=== PATIENT | female | born 1985 | race African-American/Black ===

== ENCOUNTER 2017-08-25 03:07 | Inpatient (IN) | payer OTHER ==
[~2017-08-25] VITALS: Ht 162.6 cm; Wt 81.2 kg
[2017-08-25] VITALS (11 sets, daily range): BP systolic 93–124; BP diastolic 50–67
[~2017-08-25 03:07] MED LIST: MOTRIN800 MG PO; PRENATAL TABLE1 EACH PO; ZOFRAN4 MG PO
[2017-08-25 03:55] LABS: HEMATOCRIT 33.2 % (36.0-46.0); HEMOGLOBIN 11.2 G/DL (11.9-15.5); MCH 28.6 PG (29.0-34.0); MCHC 33.7 G/DL (30.0-36.0); MCV 84.9 FL (83-99); PLATELET COUNT 105 K/uL (156-360); RBC DIS.WIDTH-CV 14.5 % (11.8-14.6); RBC DIS.WIDTH-SD 44.7 % (39-53); RED BLOOD COUNT 3.91 M/uL (3.80-5.20); WHITE BLOOD COUNT 7.6 K/uL (4.1-10.2)
[2017-08-25] MEDS ORDERED: ENDOCET 5-3251 EACH PO (05:56)
[2017-08-25] MEDS ORDERED: IBUPROFEN800 MG PO (05:56)
[2017-08-25 11:01] LABS: HEMATOCRIT 28.9 % (36.0-46.0); HEMOGLOBIN 9.4 G/DL (11.9-15.5); MCH 28.4 PG (29.0-34.0); MCHC 32.5 G/DL (30.0-36.0); MCV 87.3 FL (83-99); PLATELET COUNT 101 K/uL (156-360); RBC DIS.WIDTH-CV 14.6 % (11.8-14.6); RBC DIS.WIDTH-SD 46.3 % (39-53); RED BLOOD COUNT 3.31 M/uL (3.80-5.20); WHITE BLOOD COUNT 13.3 K/uL (4.1-10.2)
[2017-08-25 11:17] LABS: PTT 27.1 SEC (25-37)
[2017-08-25 11:44] LABS: FIBRINOGEN 328 mg/dL (150-450)
[2017-08-25 16:19] LABS: HEMATOCRIT 25.5 % (36.0-46.0); HEMOGLOBIN 8.4 G/DL (11.9-15.5); MCH 28.8 PG (29.0-34.0); MCHC 32.9 G/DL (30.0-36.0); MCV 87.3 FL (83-99); PLATELET COUNT 91 K/uL (156-360); RBC DIS.WIDTH-CV 14.6 % (11.8-14.6); RBC DIS.WIDTH-SD 46.5 % (39-53); RED BLOOD COUNT 2.92 M/uL (3.80-5.20); WHITE BLOOD COUNT 12.5 K/uL (4.1-10.2)
[2017-08-25 20:37] LABS: HEMATOCRIT 25.4 % (36.0-46.0); HEMOGLOBIN 8.6 G/DL (11.9-15.5); MCH 29.7 PG (29.0-34.0); MCHC 33.9 G/DL (30.0-36.0); MCV 87.6 FL (83-99); PLATELET COUNT 93 K/uL (156-360); RBC DIS.WIDTH-CV 14.6 % (11.8-14.6); RBC DIS.WIDTH-SD 46.9 % (39-53)
[2017-08-26 03:00] VITALS: BP 113/61
[2017-08-26 06:42] LABS: BASOPHIL (%) 0.1 % (0-1); EOSINOPHIL (%) 0.1 % (0-5); HEMATOCRIT 23.7 % (36.0-46.0); HEMOGLOBIN 7.8 G/DL (11.9-15.5); IMMATURE GRANULOCYTE (%) 0.4 % (0.0-0.7); LYMPHOCYTE (%) 12.4 % (15-42); LYMPHOCYTE COUNT 1.7 K/uL (1.0-2.8); MCH 28.7 PG (29.0-34.0); MCHC 32.9 G/DL (30.0-36.0); MCV 87.1 FL (83-99); MONOCYTE (%) 3.6 % (3-12); MONOCYTE COUNT 0.5 K/uL (0-0.8); NEUTROPHIL (%) 83.4 % (45-76); NEUTROPHIL COUNT 11.3 K/uL (1.8-6.4); PLATELET COUNT 97 K/uL (156-360); RBC DIS.WIDTH-CV 14.6 % (11.8-14.6); RBC DIS.WIDTH-SD 45.9 % (39-53); RED BLOOD COUNT 2.72 M/uL (3.80-5.20); WHITE BLOOD COUNT 13.5 K/uL (4.1-10.2)
[2017-08-26 07:00] VITALS: BP 98/48
[2017-08-26 11:30] VITALS: BP 116/52
[2017-08-27 07:43] VITALS: BP 124/69
[2017-08-27 14:38] VITALS: BP 116/60
[2017-08-28 08:15] VITALS: BP 104/58
== END 2017-08-28 15:30 | disposition home or self-care (01) | DRG 765 ==
LOC: 2WEST 03:07 → 2SOUTH 10:42 → 2WEST 08-28 15:30
PROVIDERS: Obstetrics & Gynecology; Obstetrics & Gynecology Gynecology
DX: O99.824 Streptococcus B carrier state complicating childbirth (principal); D62 Acute posthemorrhagic anemia; O34.211 Maternal care for low transverse scar from previous cesarean delivery; Z37.0 Single live birth; Z3A.39 39 weeks gestation of pregnancy; Z30.2 Encounter for sterilization; O42.02 Full-term premature rupture of membranes, onset of labor within 24 hours of rupture; O72.2 Delayed and secondary postpartum hemorrhage; O99.02 Anemia complicating childbirth; O99.12 Other diseases of the blood and blood-forming organs and certain disorders involving the immune mechanism complicating childbirth; D69.59 Other secondary thrombocytopenia
CPT/HCPCS: 85025; 85027; 85384; 85610; 85730; 86850; 86900; 86901; 88302; J0690; J1170; J1885; J2270; J2274; J2405; J2590; J3105; J7120